=== PATIENT | male | born 1955 | race Caucasian/White ===

== ENCOUNTER → 2018-01-19 | Outpatient (CLI) | payer OTHER ==
[~2018-01-19] MED LIST: ASPI-496 PO; CALC-680 PO; CHOL200052 PO; FOLI-17 PO; LEVO750T26 PO; METH2.5T PO; MULT-204 PO; NAPR220C PO
== END | disposition home or self-care (01) ==
LOC: RAD 08:57
PROVIDERS: ATTEND Internal Medicine
DX: K21.9 Gastro-esophageal reflux disease without esophagitis (principal)
CPT/HCPCS: 74220